=== PATIENT | female | born 1960 | race Caucasian/White ===

== ENCOUNTER 2023-09-18 07:50 | Observation (INO) | payer MEDICARE, OTHER, SELFPAY ==
[2023-09-18] VITALS (12 sets, daily range): BP systolic 93–161; BP diastolic 76–103; PULSE 62–78; RESP 15–22; TEMP 36.2–36.6; O2SAT 96–100
--- NOTE | ~2023-09-18 | CT_ITS ---
EXAMINATION: CTA BRAIN/CAROTID DATE: 09/18/2023 10:35 INDICATION: Transient right hemiplegia TECHNIQUE: Computed tomographic angiography (CTA) of the head and neck was performed with 100 mL Omni paque-350 intravenous contrast. Multiplanar reconstructions and maximum intensity projection 3D-recon structions of the carotid arteries and of the intracranial arteries were created by the technologist on a separate workstation. Automated exposure control and iterative reconstruction technique were emp loyed. The dose-length product was 1138.83 mGy-cm. COMPARISON: Head CT dated 09/18/2023 FINDINGS: Carotid arteries: Aortic arch is normal in caliber with no atherosclerotic plaque, aneurysm or dissection. There is sma ll amount of atherosclerotic plaque with 0% stenosis of the right carotid bulb relative to normal dis dexter artery lumen diameter (NASCET criteria). There is no evident atherosclerotic plaque with 0% steno sis of the left carotid bulb relative to normal distal artery lumen diameter. Cervical soft tissues a re unremarkable. Visualized portions of the upper lungs are clear. Mild cervical spondylosis. Intracranial arteries Small amount of nonhemodynamically significant atherosclerotic plaque at the bilateral carotid siphon s. There is no hemodynamically significant stenosis in the vertebral, basilar and internal carotid ar teries. Vertebral arteries are codominant. There are no aneurysms identified. Both A1 and P1 segment s are patent. The right P1 segment is significantly smaller than the left with additional clot or marcela w supplied right posterior cerebral artery via a patent right posterior communicating artery. There i s also a patent anterior to indicating artery. Cerebral arterial arborization appears symmetric. IMPRESSION: 1. 0% stenosis of the right and left carotid bulbs relative to normal distal artery lumen diameter (N ASCET criteria). 2. Small amount of nonhemodynamically significant atherosclerotic plaque at the bilateral carotid sip hons. Otherwise unremarkable cerebral cerebral CT angiogram with no hemodynamically significant steno sis, thrombosis or aneurysm. Reviewed, dictated and finalized at location B. IMPRESSION: 1. 0% stenosis of the right and left carotid bulbs relative to normal distal ar dl lumen diameter (NASCET criteria). 2. Small amount of nonhemodynamically significant atherosclerotic plaque at the bilateral carotid siphons. Otherwise unremarkable cerebral cerebral CT angiogr am with no hemodynamically significant stenosis, thrombosis or aneurysm.
--- NOTE | ~2023-09-18 | CT_ITS ---
EXAMINATION: CT brain wo con DATE: 09/18/2023 08:16 INDICATION: Right-sided hemiplegia TECHNIQUE: Computed tomography (CT) of the head was performed without intravenous contrast. Sagittal and coronal reconstructions were performed. The mA was adjusted according to patient size. Iterative reconstruction technique was employed. The dose-length product was 681.00 mGy-cm. COMPARISON: head CT dated 04/11/2008 and brain MR dated 07/08/2008 FINDINGS: No acute intracranial hemorrhage, acute infarction or abnormal extra axial fluid collection. There is mild scattered white matter hypoattenuation consistent with chronic small vessel ischemic disease. R elative symmetric dystrophic calcification is at the bilateral basal ganglia. Ventricles are normal a nd symmetric. No mass/mass effect. Intracranial calcified cerebral atherosclerosis is noted. Changes of bilateral intraocular lens replacement. The orbits, paranasal sinuses and mastoid air cells are no rmal. IMPRESSION: 1. Mild scattered white matter hypoattenuation consistent with chronic small vessel ischemic disease. No acute intracranial process. Reviewed, dictated and finalized at location B. IMPRESSION: 1. Mild scattered white matter hypoattenuation consistent with chronic small ve ssel ischemic disease. No acute intracranial process.
--- NOTE | 2023-09-18 08:01 | ECG_ITS ---
Test Date: 2023-09-18 08:24:46 Measurements Intervals [place] Rate: 61 P: 0 PA: 0 QRS: -30 QRSD: 113 T: -17 QT: 379 QTc: 383 Interpretive Statements SINUS RHYTHM INTRAVENTRICULAR CONDUCTION DELAY BORDERLINE R WAVE PROGRESSION, ANTERIOR LEADS PROBABLE LATERAL MYOCARDIAL INFARCTION , PROBABLY OLD BORDERLINE T WAVE ABNORMALITY- INF/LAT LEADS ABNORMAL ECG No previous ECG available for comparison Electronically Signed On 09-18-2023 10:50:08 CDT by Rajat Elena D.O.
[2023-09-18 08:02] LABS: Glucose Point of Care 145 mg/dl (65-105)
--- NOTE | 2023-09-18 08:08 | ED.AMS ---
HPI - Altered Mental Status General Chief Complaint: Altered Mental Status Stated Complaint: low blood sugar; weakness Time Seen by Provider: 09/18/23 07:59 Source: patient and EMS Mode of arrival: EMS History of Present Illness HPI narrative: 63-year-old female with a history of history arthritis status post bilateral TKA, lumbar spondylosis, status post right shoulder surgery, dyslipidemia, diabetes mellitus, CVA TIA, Atrial fibrillation was brought in by EMS for -- patient was unable to move when she got up this morning, right-sided weakness and slurred speech . Called EMS who noted a blood sugar to be 36. Patient is on the Dapagliflozin, glimepiride, Levemir 100 units and semaglutide. -- headache last night which resolved spontaneously -- EMS noted her to have right-sided weakness. Last known well was last night. -- after patient received dextrose IV her symptoms resolved. Her right-sided weakness resolved. patient has had a history of syncopal spells for the last 20 years. She has episodes where she would pass out. The patient has been worked up with an MRI and EEG which has been inconclusive. The patient has never had focal deficits during her previous syncopal spells. On presentation to the ER the patient is alert and oriented. She has an NIHSS of 0 MD complaint: altered mental status Onset (ago): hour(s) ( 1 hour ago) Timing confirmed by: family member Context: diabetes and other ( TIA) Associated symptoms: denies other symptoms Treatments prior to arrival: glucose Related Data Home Medications Medication Instructions Recorded Confirmed dapagliflozin propanediol 5 mg 5 mg PO DAILY 09/05/23 09/18/23 tablet escitalopram oxalate 10 mg tablet 10 mg PO DAILY 09/05/23 09/18/23 glimepiride 2 mg tablet 2 mg PO QAM 09/05/23 09/18/23 hydrochlorothiazide 25 mg tablet 25 mg PO DAILY 09/05/23 09/18/23 hydrocodone 10 mg-acetaminophen 1 tablet PO Q6H PRN Pain 09/05/23 09/18/23 325 mg tablet insulin detemir U-100 100 unit/mL 100 unit subcut DAILY 09/05/23 09/18/23 subcutaneous solution (Levemir U-100 Insulin) losartan 100 mg tablet 100 mg PO DAILY 09/05/23 09/18/23 mirabegron 50 mg tablet,extended 50 mg PO DAILY 09/05/23 09/18/23 release 24 hr omeprazole 20 mg capsule,delayed 20 mg PO DAILY 09/05/23 09/18/23 release semaglutide 0.25 mg or 0.5 mg (2 0.25 mg subcut WEEKLY 09/05/23 09/18/23 mg/1.5 mL) subcutaneous pen injector simvastatin 20 mg tablet 20 mg PO DAILY 09/05/23 09/18/23 zolpidem 10 mg tablet 10 mg PO QHS 09/05/23 09/18/23 Allergies Allergy/AdvReac Type Severity Reaction Status Date / Time codeine Allergy Unknown pass out Verified 09/18/23 07:59 Cedeno Pepper AdvReac Unknown GI UPSET Uncoded 09/18/23 07:59 FENTANYL PATCH AdvReac Unknown HIVES AND Uncoded 09/18/23 07:59 ITCHING Review of Systems Review of Systems: All systems reviewed & are unremarkable except as noted in HPI and below Constitutional: Constitutional: Reports as per HPI and Reports no additional constitutional complaints Eyes: Eyes: Reports as per HPI and Reports no additional eye complaints ENT: Reports system reviewed and no additional complaints, except as documented and Reports as per HPI Cardiovascular: Cardiovascular: Reports as per HPI and Reports no additional cardiovascular complaints Respiratory: Respiratory: Reports as per HPI and Reports no additional respiratory complaints Gastrointestinal: Gastrointestinal: Reports as per HPI and Reports no additional gastrointestinal complaints Genitourinary: Genitourinary: Reports no additional female genitourinary complaints and Reports as per HPI Musculoskeletal: Musculoskeletal: Reports no additional musculoskeletal complaints and Reports as per HPI Integumentary/Breasts: Skin/Breast: Reports system reviewed and no additional complaints, except as docu and Reports as per HPI Neurologic: Reports system reviewed and no additional complaints, except as documented
[2023-09-18] MEDS: DEXTROSE 10% 250 ML 50 ML IV CONT (08:25)
--- NOTE | 2023-09-18 08:27 | PC.NURSE ---
pt has returned from ct, is sitting up talking with family without distress, laughing and alert. vss per monitor. nad noted. pt has iv medication infusing as ordered without difficulty. will continue to monitor.
[2023-09-18 08:37] LABS: Basophils Absolute Auto 0.02 K/mm3 (0.00-0.10); Basophils Percent Auto 0.4 % (0.0-1.0); Eosinophils Absolute Auto 0.02 K/mm3 (0.02-0.50); Eosinophils Percent Auto 0.4 % (1.0-6.0); Hematocrit 43.6 % (35.0-49.0); Hemoglobin 14.4 g/dL (12.0-15.0); Immature Granulocyte Absolute 0.01 K/mm3 (0.00-0.00); Immature Granulocyte Percent A 0.2 % (0.0-0.0); Immature Platelet Fraction Pct 2.1 % (1.0-7.0); Lymphocytes Absolute Auto 0.62 K/mm3 (1.10-4.50); Lymphocytes Percent Auto 13.5 % (18.0-42.0); Mean Corpuscular Hemoglobin 30.8 pg (27.0-31.0); Mean Corpuscular Volume 93.4 fL (78.0-102.0); Mean Platelet Volume 10.5 fl (9.2-11.8); Monocytes Absolute Auto 0.31 K/mm3 (0.10-0.90); Monocytes Percent Auto 6.8 % (2.0-11.0); Neutrophils Absolute Auto 3.61 K/mm3 (1.70-7.20); Neutrophils Percent Auto 78.7 % (50.0-70.0); Platelet Count Result 57 K/mm3 (150-420); Red Blood Count 4.67 M/mm3 (4.20-5.40); Red Cell Distribution Width 14.4 % (11.6-14.4); White Blood Count 4.6 K/mm3 (4.8-10.8)
--- NOTE | 2023-09-18 08:37 | PC.NURSE ---
breakfast tray ordered
[2023-09-18 08:52] LABS: Prothrombin Time 11.4 Seconds (9.64-11.0)
[2023-09-18 08:54] LABS: Alanine Aminotransferase 37 U/L (14-59); Albumin Level 3.2 g/dL (3.4-5.0); Alkaline Phosphatase 81 U/L (46-116); Anion Gap 8 mmol/L (4-12); Aspartate Amino Transferase 41 U/L (15-37); Bilirubin,Total 1.7 mg/dL (0.00-1.00); Blood Urea Nitrogen 14 mg/dL (7-18); Calcium 9.1 mg/dL (8.5-10.1); Carbon Dioxide 27 mmol/L (21-32); Chloride 107 mmol/L (98-108); Estimated CRCL calculation 60 ml/min; Estimated Glomerular Filt Rate 46; Glucose 121 mg/dL (70-99); Lipase 76 U/L (16-77); Osmolality Calculated 295 mOsm/kg (285-295); Sodium 142 mmol/L (136-145); Total Protein 6.6 g/dL (6.4-8.2); Troponin I 15.7 ng/L (0.00-60.4)
[2023-09-18 08:59] LABS: Lactic Acid Reflex 1.8 mmol/L (0.4-2.0)
--- NOTE | 2023-09-18 09:09 | PC.NURSE ---
pillow provided for pt's knees as requested. family remains at bedside. fsbs 124 at this time. iv medication infusing as ordered without difficulty. will continue to monitor.
[2023-09-18 09:10] LABS: Glucose Point of Care 124 mg/dl (65-105)
[2023-09-18 09:31] LABS: Appearance Urine Clear (Clear); Bilirubin Urine Negative (Negative); Blood Urine Negative (Negative); Color Urine Light Yellow (Yellow); Glucose Urine UA 3+ (Negative); Ketones Urine Negative (Negative); Leukocyte Esterase Ur Trace LEU/UL (Negative); Nitrate Urine Negative (Negative); Protein Urine Negative (Negative); Specific Grav Ur <= 1.005 (1.010-1.020); Urobilinogen Urine 0.2 mg/dL (0.2-1.0)
[2023-09-18 09:39] LABS: Add Urine Microscopic? YES; Bacteria Urine 1+ /hpf; RBC Urine None seen /hpf (0-2); Squamous Epithelial Cell Urine Few /hpf (Few)
[2023-09-18 10:02] LABS: Glucose Point of Care 172 mg/dl (65-105)
[2023-09-18 10:03] LABS: Cholesterol 91 mg/dL (0-200); HDL Direct 55 mg/dL (40-60); LDL Cholesterol Calculated 26 mg/dL (<130); Triglycerides 49 mg/dL (0-150)
[2023-09-18 10:07] LABS: Hemoglobin A1C 5.5 % (<5.7)
--- NOTE | 2023-09-18 10:15 | PC.NURSE ---
pt is in ct at this time. pt is to await results prior to admission. pt and family are aware of plan of care. nad noted. pt has been to rr without difficulty per tech and wc. pt has steady gait noted. will continue to monitor.
[2023-09-18] MEDS: ASPIRIN 81 MG CHEWABLE TABLET 324 MG PO (10:31)
[2023-09-18] MEDS: CLOPIDOGREL BISULFATE 75 MG TABLET PO (10:31)
--- NOTE | 2023-09-18 10:54 | PC.NURSE ---
pt is to be admitted to room 204. family has left for the day. pt is to at this time. will continue to monitor.
[2023-09-18 11:03] LABS: Glucose Point of Care 181 mg/dl (65-105)
--- NOTE | 2023-09-18 11:20 | ADMGEN ---
This patient, Reena Cardoso, was admitted to 2nd Floor Room 204-2. Patient/family oriented to hospital policies and general routines including ID bracelet, bed and alarms, visiting hours, pain management, procedures, bathroom and other care routines, personal items, smoking policy, room service/diet, and visiting hours. Information on how to activate the Rapid Response Team has been discussed. Patient/Family are encouraged to report perceived risks to care and to ask questions if they do not understand what they are told or what they should do.
[2023-09-18] MEDS: ONDANSETRON INJ 4 MG/2 ML VIAL IV PUSH (12:05)
[2023-09-18 12:10] LABS: Glucose Point of Care 186 mg/dl (65-105)
[2023-09-18 14:23] LABS: Glucose Point of Care 188 mg/dl (65-105)
--- NOTE | 2023-09-18 14:55 | ECHO_ITS ---
Patient Info Name: Reena Cardoso Age: 63 years : 1960 Gender: Female Ht: 68 in Wt: 280 lbs BSA: 2.53 m2 HR: 76 bpm BP: 150 / 78 mmHg Technical Quality: Good Exam Date: 09/18/2023 2:12 PM Exam Location: Echo Lab Patient Status: Inpatient Admit Date: 09/18/2023 Staff Ordering Physician: Ni Ashraf NP Entry Specialists: Ishaan Reinoso RDCS Attending Provider: Richard Teran MD Referring Physician: Andriy ZHANG; Exam Type: CA echo limited w bubble study Study Info Indications - stroke like symptoms Limited two-dimensional transthoracic echocardiogram is performed with agitated saline. Contrast/Agitated Saline Contrast/Ag. Saline: Agitated Saline Amount: 8.00 ml Existing IV Access: Yes Summary 1. Left ventricular chamber dimension is normal. 2. Left ventricular systolic function is normal, estimated at 60-65%. 3. There is mild concentric increased left ventricular wall thickness. 4. The left ventricular diastolic function is indeterminate as it was not assessed. 5. Left atrial chamber dimension is mildly enlarged. 6. There is mild aortic valve sclerosis. 7. No pulmonary hypertension, estimated pulmonary arterial systolic pressure is 25 mmHg. Left Ventricle The left ventricular diastolic function is indeterminate as it was not assessed. Tissue doppler was not performed. Left ventricular chamber dimension is normal. Left ventricular systolic function is normal, estimated at 60-65%. There is mild concentric increased left ventricular wall thickness. Right Ventricle Right ventricular chamber dimension is normal. Right ventricular systolic function is normal. Left Atria Left atrial chamber dimension is mildly enlarged. Right Atria Right atrial chamber dimension is normal. Atrial Septum Agitated saline injection with valsalva maneuver opacified right side cardiac chambers without shunt to left side cardiac chambers. Intact interatrial septum visualized by 2D and agitated saline imaging. Aortic Valve The aortic valve is trileaflet. There is mild aortic valve sclerosis. There is no aortic valve stenosis. There is no aortic valve regurgitation. Pulmonic Valve There is no pulmonic regurgitation. Mitral Valve There is no mitral valve stenosis. There is no mitral valve regurgitation. Tricuspid Valve There is no tricuspid valve regurgitation. No pulmonary hypertension, estimated pulmonary arterial systolic pressure is 25 mmHg. Pericardium/Pleural There is no pericardial effusion. Inferior Vena Cava Normal inferior vena cava with >50% collapse upon inspiration consistent with normal right atrial pressure, 5 mmHg. Aorta The aortic root size at the sinus of Valsalva is normal. Left Ventricular Outflow Tract Name Value Normal LVOT 2D LVOT Diameter 2.0 cm Tricuspid Valve Name Value Normal TV Regurgitation Doppler TR Peak Velocity 226 cm/s TR Peak Gradient 20 mmHg Estimated PAP/RSVP
[2023-09-18 16:49] LABS: Glucose Point of Care 156 mg/dl (65-105)
[2023-09-18 20:54] LABS: Glucose Point of Care 176 mg/dl (65-105)
[2023-09-18] MEDS: ZOLPIDEM TARTRATE (*CRX) 5 MG TABLET 10 MG PO (21:02)
[2023-09-19] VITALS: BP 180/76; PULSE 65; RESP 16; TEMP 36.8; O2SAT 98
[2023-09-19 08:00] VITALS: BP 166/85; PULSE 64; RESP 17; TEMP 36.4; O2SAT 98
[2023-09-19 08:09] LABS: Glucose Point of Care 176 mg/dl (65-105)
--- NOTE | 2023-09-19 09:06 | PM.SD2 ---
Same Day Admit/Disch: HPI History of Present Illness Chief complaint: HYPERGLYCEMIA TIA Narrative: Reena Cardoso is a 63 year old female 63-year-old female with a history of history arthritis status post bilateral TKA, lumbar spondylosis, status post right shoulder surgery, dyslipidemia, diabetes mellitus, CVA TIA, Atrial fibrillation was brought in by EMS for -- patient was unable to move when she got up this morning, right-sided weakness and slurred speech . Called EMS who noted a blood sugar to be 36. Patient is on the Dapagliflozin, glimepiride, Levemir 100 units and semaglutide. -- headache last night which resolved spontaneously -- EMS noted her to have right-sided weakness. Last known well was last night. -- after patient received dextrose IV her symptoms resolved. Her right-sided weakness resolved. patient has had a history of syncopal spells for the last 20 years. She has episodes where she would pass out. The patient has been worked up with an MRI and EEG which has been inconclusive. The patient has never had focal deficits during her previous syncopal spells. On presentation to the ER the patient is alert and oriented. She has an NIHSS of 0 PMFSH Past Medical History Medical History Anemia Diabetes High cholesterol Hypertension SINGLETON (nonalcoholic steatohepatitis) Recurrent syncope TIA (transient ischemic attack) Surgical History Surgical History History of carpal tunnel release of both wrists History of knee replacement bilateral History of lumbosacral spine surgery Family History Family History Sibling Family history of malignant neoplasm of uterus Other Cerebrovascular accident Diabetes mellitus Family history of arthritis Family history of atrial fibrillation Family history of blood dyscrasia Family history of hearing loss Family history of lung disease Family history of mental disorder Hypertension Social History Social History Smoking status: Never smoker Alcohol intake: never Substance use: never Substance use type: does not use Do You Feel Safe in your Home?: Yes Lack of Transportation: No Lack of Food: Never True Current Housing: I Have Housing Concerned About Future Housing: No Difficulty Paying Gas/Electric Bills: No Difficulty Paying for Meds: YES Currently Unemployed: No Education: Bachelor's Degree Difficulty w/ Childcare or Family Care: No Living arrangements: with family Occupation/Education: retired Additional occupation/education comments: disabled Gender identity (if verbalized by the patient): Female Spiritual care concerns: No Same Day Admit/Disch: Med Pre-admit Medications Home Medications Medication Instructions Recorded Confirmed Type dapagliflozin propanediol 5 mg 5 mg PO DAILY 09/05/23 09/18/23 History tablet escitalopram oxalate 10 mg tablet 10 mg PO DAILY 09/05/23 09/18/23 History glimepiride 2 mg tablet 2 mg PO QAM 09/05/23 09/18/23 History hydrochlorothiazide 25 mg tablet 25 mg PO DAILY 09/05/23 09/18/23 History hydrocodone 10 mg-acetaminophen 1 tablet PO Q6H PRN Pain 09/05/23 09/18/23 History 325 mg tablet insulin detemir U-100 100 unit/mL 100 unit subcut DAILY 09/05/23 09/18/23 History subcutaneous solution (Levemir U-100 Insulin) losartan 100 mg tablet 100 mg PO DAILY 09/05/23 09/18/23 History mirabegron 50 mg tablet,extended 50 mg PO DAILY 09/05/23 09/18/23 History release 24 hr omeprazole 20 mg capsule,delayed 20 mg PO DAILY 09/05/23 09/18/23 History release prednisone 10 mg tablet 10 mg PO BID #20 tabs 09/05/23 09/18/23 Rx semaglutide 0.25 mg or 0.5 mg (2 0.25 mg subcut WEEKLY 09/05/23 09/18/23 History mg/1.5 mL) subcutaneous pen injector simv
[2023-09-19 09:34] LABS: Hematocrit 43.6 % (35.0-49.0); Hemoglobin 14.2 g/dL (12.0-15.0); Immature Platelet Fraction Pct 2.6 % (1.0-7.0); Mean Corpuscular HGB Conc 32.6 g/dL (32-36); Mean Corpuscular Hemoglobin 30.9 pg (27.0-31.0); Mean Platelet Volume 10.4 fl (9.2-11.8); Platelet Count Result 48 K/mm3 (150-420); Red Blood Count 4.59 M/mm3 (4.20-5.40); Red Cell Distribution Width 13.9 % (11.6-14.4); White Blood Count 2.6 K/mm3 (4.8-10.8)
[2023-09-19] MEDS: LOSARTAN POTASSIUM 50 MG TABLET 100 MG PO (09:44)
[2023-09-19] MEDS: SIMVASTATIN 10 MG TABLET 20 MG PO (09:44)
[2023-09-19 09:48] LABS: Blood Urea Nitrogen 14 mg/dL (7-18); Calcium 9.5 mg/dL (8.5-10.1); Chloride 105 mmol/L (98-108); Estimated CRCL calculation 55 ml/min; Estimated Glomerular Filt Rate 41; Glucose 245 mg/dL (70-99); Osmolality Calculated 302 mOsm/kg (285-295); Potassium 4.1 mmol/L (3.5-5.1); Sodium 142 mmol/L (136-145)
[2023-09-19 09:53] LABS: Carbon Dioxide 28 mmol/L (21-32)
[2023-09-19 10:08] LABS: Anion Gap 8 mmol/L (4-12)
--- NOTE | 2023-09-19 11:20 | PC.NURSE ---
Discharge instructions reviewed with patient. All questions answered. Pt escorted via wheelchair and assisted into private vehicle.
--- NOTE | 2023-09-20 13:43 | PC.NURSE ---
Discharge call back attempted, no answer
--- NOTE | 2023-09-23 09:39 | PC.NURSE ---
discharge call back attempted, no answer
== END 2023-09-19 11:20 | disposition home or self-care (01) ==
LOC: CHSED 09:40 → CHS2ND 11:00
PROVIDERS: Nurse Practitioner Family; Admitting Provider Internal Medicine; Emergency Provider Internal Medicine Critical Care Medicine; PCP Internal Medicine Endocrinology, Diabetes & Metabolism; Visit Provider Internal Medicine
DX: G45.9 Transient cerebral ischemic attack, unspecified (principal); N28.9 Disorder of kidney and ureter, unspecified; E11.649 Type 2 diabetes mellitus with hypoglycemia without coma; M47.816 Spondylosis without myelopathy or radiculopathy, lumbar region; D64.9 Anemia, unspecified; R55 Syncope and collapse; E78.00 Pure hypercholesterolemia, unspecified; K75.81 Nonalcoholic steatohepatitis (NASH); Z86.73 Personal history of transient ischemic attack (TIA), and cerebral infarction without residual deficits; Z96.653 Presence of artificial knee joint, bilateral; Z79.84 Long term (current) use of oral hypoglycemic drugs; Z79.4 Long term (current) use of insulin; Z79.85 Long-term (current) use of injectable non-insulin antidiabetic drugs; Z79.891 Long term (current) use of opiate analgesic
CPT/HCPCS: 36415; 70450; 70496; 70498; 80048; 80053; 80061; 81001; 82948; 83036; 83605; 83690; 83735; 84484; 85025; 85027; 85055; 85610; 93005; 93308; 96365; 96366; 96375; 97161; 99285; A9270; G0378; J0696; J2405; Q9967

== ENCOUNTER 2024-05-19 15:49 | Outpatient (RCR) | payer MEDICARE, OTHER, SELFPAY ==
--- NOTE | 2024-05-19 15:56 | OPREHPOC ---
Outpatient Therapy Plan of Care This is a Multidisciplinary Plan of Care that may contain components documented by all disciplines (PT, OT, and ST.) PT Problem 1 PT Problem #1 Knowledge Deficit PT Goal 1 Goal / Goal Update 1. independent and compliant with HEP Target Visit 6 PT Problem 2 PT Problem #2 Impaired Strength PT Goal 1 Goal / Goal Update 1. improve bilateral hip strength to 4/5 or better in sitting 2. improve bilateral knee strength to 4+/5 or better in sitting 3. improve bilateral ankle strength to 4+/5 or better Target Visit 12 PT Problem 3 PT Problem #3 Impaired Balance PT Goal 1 Goal / Goal Update 1. tinetti to display moderate fall risk or less 2. 5x sit to stand to be completed in 30 seconds or less 3. TUG to be completed in 12 seconds or less safely Target Visit 12 PT Problem 4 PT Problem #4 Impaired Functional Mobility PT Goal 1 Goal / Goal Update 1. patient to report no falls while a patient in PT. 2. patient to ambulate 700ft in 6 minutes without rest Target Visit 12
--- NOTE | 2024-05-19 15:57 | PTOPEVAL1 ---
Assessment and note entered by JT File, PT Evaluation Information Assessment Status Evaluation ICD-10 Condition Codes (PT) Repeated falls R29.6 Onset 05/11/24 Subjective Information patient reports she has a lot going on. she reports she was diagnosed with neuropathy back in 2004. she reports she now has poor circulation in her feet (L worse than R). she reports these circulation and neuropathy issues are beginning to gravitate up her legs. she reports she does have history of several falls. she reports she has spinal fractures from some of her older falls. she reports more recently, she has been having frequent falls due to not knowing where her feet are due to neuropathy and poor circulation. she is complicated by several surgeries on the knees (47 total between the 2). she reports she struggles to move the R knee in flexion, but is better with the L knee. Reported Pain Level Pain Score 8: Self Report Assessment PT Clinical Summary mrs. montez is a 63 yo woman who presents to skilled PT services for evaluation and treatment of frequent falls. she displays poor sensation of the bilateral LE's, high fall risk, and LE weakness/decreased mobility. she would benefit from continued skilled PT to improve her balance, proprioception, righting reactions, and strength to improve her safety and functional activity performance. Plan of Care Interventions Gait Training,Neuro Re-education,Patient/Caregiver Education,Therapeutic Activities,Therapeutic Exercise PT Services Indicated Yes Treatment Frequency and 3x weekly for 12 visits Duration These treatments will address the objective and functional deficits as defined above. The patient will be advanced safely and appropriately in order for the patient to progress towards his/her prior level of function. Additional exercises will be introduced and as well as a comprehensive home exercise program upon discharge, if needed, to ensure carryover of functional gains achieved in the clinic. This treatment plan has been reviewed and agreement upon by the patient.
--- NOTE | 2024-05-28 14:04 | PCPTNOTE ---
Cancelled session. Reports she is not going to make it today.
== END 2024-05-21 20:00 | disposition home or self-care (01) ==
LOC: CHSPT 15:49
PROVIDERS: Visit Provider Family Medicine
DX: R29.6 Repeated falls (principal)
CPT/HCPCS: 97110; 97150; 97161; 97530

== ENCOUNTER 2024-12-07 15:08 | Outpatient (CLI) | payer MEDICARE, OTHER, SELFPAY ==
--- OUTSIDE RECORDS SUMMARY | 2016-01-13 08:00 | XMS_ITS | Continuity of Care Document ---
Author Organization [facility] Address [address] [place] [address] Phone Care Team Providers Care Harness Worker Name Role Phone Andrés Chavez MD Unavailable Unavailable Advance Directives Directive Yes / No Effective Date File Name No Information Encounters Encounter Description Practice Location Reason(s) For Visit Diagnoses Date Provider Providers Copied on Encounter [facility], [address], [place], [place], [id number], [place] tel:[phone] [facility] No Information Scott Bowen. [address] , [place], [place], [address], [place]. tel:[phone] Referring Provider: Manny Deleon, [address], [place], [address]. tel:[phone] Family History Family Member Type Diagnosis Age At Onset No Information Payers Payer name Insurance type Covered republican ID Authoriza tion(s) MEDICARE MB [id number] [facility] [id number] Social History Type Description Quantity Date Captured Comments Sex Female Smoking Status No Information Chief Complaint And Reason For Visit No Information Reason For Referral Reason For Referral No Information History Of Present Illness Encounter Date Complaint History Of Prese nt Illness No Information Functional Status Date Functional Assessmen t No Information Instructions Date Instruction Additional Infor mation No Information Assessments Type Assessment Date No Information Patient Care Teams Name Effective Dates (start - stop) Status Members No Information
--- OUTSIDE RECORDS SUMMARY | 2016-02-08 09:45 | XMS_ITS | Continuity of Care Document ---
Author Organization [facility] Address [address] [facility] [address] [address] Phone Care Team Providers Care Cuffing Machine Operator Name Role Phone Enoc Hurtado MD Unavailable Unavailable Allergies, Adverse Reactions, Alerts Substance Reaction Status Criticality fentanyl Active No Information Medications Medication Instructions Dosage Effective Dates (start - stop) Status Comments diclofenac 0.1 % eye drops Instill 1 drop in the operated eye TID x 4 weeks - Active prednisolone acetate 1 % eye drops,suspension instill 1 drop in the operated eye QID x 1 week, TID x 1 week, BID x 1 week then Qday x 1 week then stop - Active Vigamox 0.5 % eye drops Instill 1 drop in the operated eye QID x 1 week, and then TID until bottle runs out - Active Please substitute generic Polytrim with the same instructions if the Vigamox is too expensive. LEVEMIR (unknown strength) Not Available - Active OMEPRAZOLE (unknown strength) Not Available - Active Zoloft 100 mg tablet take 1 tablet by oral route every 2 days 100 MG - Active metformin 500 mg tablet - Active Ambien 10 mg tablet take 1 tablet by oral route every day at bedtime 10 MG - Active clonazepam 1 mg tablet take 1 tablet by oral route 3 times every day 1 MG - Active lisinopril 10 mg tablet take 1 tablet by oral route every day 10 MG - Active Accu-Chek Carri Plus test strips - Active ProAir RespiClick 90 mcg/actuation breath activated inhale 2 puff by inhalation route every 4 - 6 hours as needed 180 MCG - Active clonazepam 1 mg tablet take 1 tablet by oral route 3 times every day 1 MG - Active cyclobenzaprine 10 mg tablet take 1 tablet by oral route 2 times every day 10 MG - Active Levemir 100 unit/mL subcutaneous solution inject by subcutaneous route per prescriber's instructions. Insulin dosing requires individualizatio n. - Active lisinopril 10 mg tablet take 1 tablet by oral route every day 10 MG - Active loratadine 10 mg tablet take 1 tablet by oral route every day 10 MG - Active omeprazole 20 mg capsule,delayed release take 1 capsule by oral route every day before a meal 20 MG - Active oxycodone-acetaminop hen 10 mg-325 mg tablet take 1 tablet by oral route every 6 hours as needed 1.00 tablet - Active sertraline 100 mg tablet take 1 tablet by oral route every day 100 MG - Active Lancets, Super Thin - Active trazodone 100 mg tablet take 1 tablet by oral route 2 times every day after meals 100 MG - Active Procedures Procedure Date No Charge Refraction Post-op Follow-up Visit No Charge Optomap Fundus Photos Oct- 016 No Charge GDX Retina Post-op Follow-up Visit Remove Cataract, Insert Lens Remove Cataract, Insert Lens,Comanaged O IOLMaster-Professional No Charge Refraction IOLMaster-Technical Office/outpatient Visit, Est No Charge Refraction SCODI, Retina Eye Exam, New Patient Advance Directives Directive Yes / No Effective Date File Name No Information Encounters Encounter Description Practice Location Reason(s) For Visit Diagnoses Date Provider Providers Copied on Encounter [facility], [address], [place], [place], [id number], [place] tel:[phone] SEC Anthony PURCELL Professional Post-Op (chief complaint) Encounter for examination following surgery 3-201 6 Bryant Stubbs. [address] [facility], [address], [place], [place], [id number], [place]. tel:[phone] Referring Provider: Michelle Kc MD, [address] [facility] [address], [place], [address]. tel:[phone] [facility], [address], [place], [place], [address], [place] tel:[phone] SEC Anthony PURCELL Professional flashes and half schultz in vision OD (chief complaint) Surgery follow-up examination Oct-1 4-201 6 Bryant Stubbs. [address] [facility], [address], [place], [place], [address], [place]. tel:[phone] Referring Provider: Michelle Kc MD, [address] [facility] [address], [place], [address]. tel:[phone] [facility], [address], [place], [place], [id number], [place] tel:[phone] SEC Anthony PURCELL Professional Post-Op (chief complaint) Surgery follow-up examination Oct-1 2-201 6 Bryant Stubbs. [address], [address], [place], [place], [address], [place]. tel:[phone] Referring Provider: Michelle Kc MD, [address] [facility] [address], [place], [address]. tel:[phone] [facility], [address], [place], [place], [address], [place] tel:[phone] [facility] [place] [place] No Information Oct- 1- 6 Bryant Stubbs. [address], [address], [place], [place], [address], [place]. tel:[phone] Referring Provider: Michelle Kc MD, [address] [facility] [address], [place], [address]. tel:[phone] [facility], [address], [place], [place], [address], [place] tel:[phone] SEC Miguel N Delfino No Information Oct-1 0- 6 Bryant Stubbs. [address] [facility], [address], [place], [place], [address], [place]. tel:[phone] [facility], [address], [place], [place], [address], [place] tel:[phone] SEC Miguel N Lindberg No Information Oct-1 0-201 6 Bryant Enriquezson. [address] [facility], [address] [place], [address], [place]. tel:[phone] Referring Provider: Michelle Kc MD, [address] [facility] [address], [place], [address]. tel:[phone] Office/outpa tient Visit, [facility], [address] [facility] [address], [place], [place], [address], [place] [phone] SEC Anthony PURCELL Professional Cataract evaluation (chief complaint) Mild nonproliferat rachel diabetic retinopathy without macular edema associated with type 2 diabetes mellitusCombi johny forms of age-related cataract of right eyeNuclear sclerosis of left eyeDry eye syndrome, bilateral Oct-3 0-201 6 Bryant Stubbs. [address] [facility], [address] [place], [address], [place]. tel:[phone] Referring Provider: Michelle Kc MD, [address] [facility] [address], [place], [address]. tel:[phone] [facility], [address] [facility] [address], [place], [place], [address], [place] [phone] SEC Anthony PURCELL Professional diabetic evaluation (chief complaint) No Information Oct-0 5-201 6 Bryant Stubbs. [address] [facility], [address] [place], [address], [place]. tel:[phone] Referring Provider: Michelle Kc MD, [address] [facility] [address], [place], [address]. tel:[phone] [facility], [address], [place], [place], [address], [place] tel:[phone] SEC Anthony [place] Professional No Information 6 Bryant Stubbs. [address] [facility], [facility] [place], [address], [place]. tel:[phone] [facility], [address], [place], [place], [address], [place] tel:[phone] SEC [facility] Professional No Information 6 Savi Shepherd. [address] [facility], [facility] [address], [place], [place], [address], [place]. tel:[phone] Family History Family Member Type Diagnosis Age At Onset No Information Payers Payer name Insurance type Covered republican ID Authoriza tion(s) No Information Social History Type Description Quantity Date Captured Comments Alcohol Use Details Unknown Caffeine Use Details Unknown Tobacco Use Status No Information Smoking Status No Information Sex Female Chief Complaint And Reason For Visit From encounter dated '02/08/2016 14:45'. Post-Op (chief complaint). Description: The 55 year old female presents for a 1 month post op CE OD. Patient is finished with drops. Patient states OD is doing good Reason For Referral Reason For Referral No Information History Of Present Illness Encounter Date Complaint History Of Prese nt Illness Post-Op The 55 year old female presents for a 1 month post op CE OD. Patient is finished with drops. Patient states OD is doing good flashes and half schultz in vision OD The 55 year old female presents for flashes and half schultz in vision OD. Patient is 3 days post op PCIOL OD. Patient states that Saturday she noticed flashes OD. Then yesterday afternoon that she noticed a half schultz in her vision temporally. She states that her vision above the line is blurry but bleow the line is black Post-Op The 55 year old female presents for a 1 day post op CE OD. Patient is using Pred, Vigamox and Diclofenac as directed. Patient denies any pain or discomfrt. Patient did not bring drops today. Cataract evaluation The 55 year old female presents for Cataract evaluation. Patient Hx Cataract OU and Type II IDDM. BS was 136 on Saturday. Patient reports she has noticed a decrease in the vision OD>OS at distance and near. Patient no longer drives at night due to poor vision and trouble with glare from oncoming lights. Patient has recently started having difficulty reading fine print even with the OTCR. Patient does not use any eye drops at this time. diabetic evaluation The 55 year old female presents for diabetic evaluation. Pt. states OD is blurry and she cant see hardly anything out of it. OS will occ. go blurry. Pt. states that she has been diabetic for 24 years. Pt. is DIMM II and states that she didn't take her blood sugar this morning. Pt. states that when she last checked it yesterday morning was 136. She states that her last A1C was 8.6 and that was taken last . Pt. has lost 40 pounds recently by trying. Dr. Michelle Kc referred her for diabetic retinopathy. Pt. states that many years ago she was told that she had GEOVANY by [facility]. Pt states that she does feel that her eyes are dry and she normally uses AFT (Visine Dry Eye Tears). Functional Status Date Functional Assessmen t No Information Instructions Date Instruction Additional Infor liz Impression/Plan - 1 month s/p Phaco IOL OD. Patient has healed well. All post operative medications are finished. Vision is good and IOP is stable. Discussed in detail with patient signs and symptoms of retinal detachment. Advised patient to call our office with any new or worsening floaters, flashes of light, or curtain vision loss. AFT use discussed with patient. Recommend using QID OU. CE OS not recommended at this time given excellent best corrected vision OS. Patient will return to clinic in 4 months for Complete IOL check or sooner with problems. Follow up - 4 months for complete IOL check or sooner with problems Impression/Plan - 3 days s/p Phaco IOL OD. Patient states Saturday she started noticing quick flashes of light temporally OD, without change in vision. she noticed her inferior vision OD was black, like a distinctive line across the vision where above it was clear and below the vision is black. Patient has not noticed any floaters in the vision. There is no evidence of retinal hole, tear or detachment upon today's dilated exam OD. OCT imaging shows the macula is attached and no other signs of RD. Due to her classic visual symptoms and being 3 days s/p CE I strongly recommend patient be seen by a retina specialist today for a second opinion. *Patient will be seeing Dr. Fowler ( Pan Cleaner microphone boom operator ) at the [facility] [place] location when she leaves the office. Dr. Fowler and the patient exchanged phone numbers to communicate, as Dr. Fowler will be meeting her there. Patient's left eye was dilated before she left the office today to expedite her exam with Dr. Fowler. Follow up - Emergent Retina Referral for possible RD OD s/p CE OD Impression/Plan - On e Day Post Op s/p Phaco with IOL OD in good position. Patient healing well. Medication instillation, shield use and restrictions reviewed with patient. Return to clinic as scheduled or sooner with problems. Follow up - Return to clinic as scheduled Impression/Plan - Di abetes Type II: Patient shows mild non-proliferative diabetic retinopathy OD upon today's dilated exam. Ocular and systemic benefits of good blood sugar control stressed to patient.Cataract Diagnosis OD>OS discussed in detail with patient. Patient understands OS does not qualify for CE at this time. Discussed all risks, benefits and alternatives pertaining to cataract surgery. The procedure and recovery from cataract extraction were discussed. Recommend phacoemulsification with intraocular lens implant OD. Lifestyle lens options discussed. The possibility that patient may still need to wear glasses to correct astigmatism and/or for reading vision following surgery reviewed and understood by patient. Patient understands that her vision does not meet the legal requirements to drive at night. Patient elects to proceed with CE OD with the standard IOL set for distance.*Possible Shugarcaine; Possible Malyugin ring Follow up - Schedule CE OD with the standard IOL set for distance Follow up - Return i n 2 weeks with Enoc Hurtado M.D. for full cat evaluation with IOL master, Age-related nuclear cataract, bilateral - Educational material given Related to Age-related nuclear cataract, bilateral Impression/Plan - Di abetes type II: baseline exam showing Mild NPDR OU without CME. No treatment necessary at this time. Patient was instructed to monitor vision for sudden changes and to call if visual changes noted. Discussed ocular and systemic benefits of blood sugar control. DM letter sent to Dr Kc. Cataracts OD>OS discussed in detail with patient. OCT MAC OU today wnl. Hx of steroid use. Discussed all risks, benefits and alternatives pertaining to cataract surgery. The procedure and recovery from cataract extraction were discussed. Recommend phacoemulsification with intraocular lens implant. Lifestyle lens options discussed. The possibility that patient may still need to wear glasses to correct astigmatism and/or for reading vision following surgery reviewed and understood by patient. Patient elects to proceed with CE OD only at this time. Cataract OS does not qualify at this time. Return in 2 weeks for full Cataract Evaluation. Will discuss IOL choices at next visit. Assessments Type Assessment Date assessment Encounter for examination follow ing surgery Patient Care Teams Name Effective Dates (start - stop) Status Members No Information
--- OUTSIDE RECORDS SUMMARY | 2023-05-30 08:45 | XMS_ITS | Continuity of Care Document ---
Author Organization [facility] Address [address] [place] [address] Phone Care Team Providers Care Eyeglass Frames Inspector Name Role Phone Luis Carlos Simmons MD Unavailable Unavailable Procedures Procedure Date OFFICE/OUTPATIENT VISIT, [facility] Syst Bp> = 140 Mm Hg6 It Diast Bp 80-89 Mm Hg BODY MASS INDEX DOCD ROUTINE VENIPUNCTURE COMPLETE CBC W AUTO DIFF WBC INITIAL HOSPITAL CARE SUBSEQUENT HOSPITAL CARE HOSPITAL DISCHARGE DAY Advance Directives Directive Yes / No Effective Date File Name No Information Encounters Encounter Description Practice Location Reason(s) For Visit Diagnoses Date Provider Providers Copied on Encounter OFFICE/OUTPAT IENT VISIT, NEW [facility], [address] [place] [address], [id number], [place] tel:[phone] [facility] 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 [address] [place] [address], [id number] , [place]. tel:[phone] Referring Provider: Luis Carlos Simmons, [address] [place] [address], [address] . tel:[phone] [facility], [address] [place], [place], [address], [place] tel:[phone] [facility] Iris Anemia, unspecified type 4 Iris Andrewsmy. [address] [place] [address], [id number] , [place]. tel: [phone] [facility], [address] [place], [place], [id number], [place] tel:[phone] [facility] Anemia, unspecified 4 Iris Luis Carlos. [address] [place] [address], [id number] , [place]. tel: [phone] Referring Provider: Luis Carlos Simmons, [address] [place] [address], [address] . tel:[phone] [facility], [address] [place], [place], [id number], [place] tel:[phone] [facility] No Information [address], [place], [id number] , [place]. tel: [phone] Family History Family Member Type Diagnosis Age At Onset No Information Payers Payer name Insurance type Covered libertarian ID Authoriza tion(s) Medicare Part B [id number] [facility] [id number] Social History Type Description Quantity Date Captured Comments Alcohol Use Details Unknown Caffeine Use Details Unknown Tobacco Use Status No Information Smoking Status No Information Sex Female Vital Signs Date / Time: Height Weight BMI Pulse Rate Blood Pressure Temperature Respiratory Rate Body Surface Area Head Circumference Head Circ. Percentile Wt./Christophe. Percentile BMI percentile Pulse Ox Inhaled Ox 1:16 PM 68.00 in 136.622 kg (301.20 lbs) 45.8 0 kg/m eter (2) 73 /min 159/85 mm[Hg] 97.60 F 16 /min 97 % Chief Complaint And Reason For Visit From encounter dated '05/30/2023 13:45'. 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 patient here with . states has long standing history of wbc and plts - fluctuates but recently worsened. patient with 2 sets of labs dating from 1 month ago confirms findings. patient states she followed with a liver doctor in [place] who explained likely culprit of cbc findings. overall patient is in good state of health. obese. denies bleeding or bruising. no recurrent infections. 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 patient here with . states has long standing history of wbc and plts - fluctuates but recently worsened. patient with 2 sets of labs dating from 1 month ago confirms findings. patient states she followed with a liver doctor in [place] who explained likely culprit of cbc findings. overall patient is in good state of health. obese. denies bleeding or bruising. no recurrent infections. patient moving to [place] in 1 weeks.physical exam;well appearing female [id number]; no pallorneck; no adenopathychest; s1 and s2, rrrlung; clear lung soundsabdomen; distended, diffult to palpable spleen and liver Functional Status Date Functional Assessmen t No Information Instructions Date Instruction Additional Infor mation No Information Assessments Type Assessment Date assessment Thrombocytopenia assessment Leukopenia, unspecified type May assessment Cirrhosis of liver w ithout ascites, unspecified hepatic cirrhosis type impression states chroniclikley 2/2 splenoemgaly with cirrhosislabs from 1 month agono labs prior to confirm stabilitypatient states flucutatesno bleeding or bruisingmoving in 1 weekdiscussed for need for bone marrow biopsy to r/o myelophthiasispatient understand and agree - will seek out boatswains mate in [place] once situatated impression chronicrecommend obs ervation with trends vs bone marrow biopsylikely 2/2 cirrhosis / splenomegaly will need to r/o MDS Patient Care Teams Name Effective Dates (start - stop) Status Members No Information
--- OUTSIDE RECORDS SUMMARY | 2023-10-18 07:15 | XMS_ITS ---
Author Organization [facility] Address [address] [place] [id number] Care Team Providers Care Supply Chain Intern Name Role Phone Radha Galdamez Primary Care Provider Encounters Encounter Location Date Provider Diagnosis [facility] [address] Galdamez [address] [place] [address] 10/18/2023 Radha Galdamez Plan Of Treatment No Information Progress Notes * Reena ANDINODOB:11/1960 (64 yo F)Acc No.[id number]:10/18/2023 Progress Notes Patient: Etta bargerharleystaciReena Wu Provider: Isa Galdamez MD :1960 A ge:63 Y S ex:Female Date:10/18/2023 Phone: Address:[address] [place], [place] [phone] * Electronic signature of James Galdamez MD on 12/07/2024 at 03:19 PM CDT Sign off status: Pending * Provider: Isa Galdamez MD Date: 10/18/2023 Generated for Justini natalya/Faagata/eTransmitting on: 12/07/2024 03:19 PM CDT
--- OUTSIDE RECORDS SUMMARY | 2024-02-01 16:00 | XMS_ITS ---
Author Organization [facility] Address [address] [place] [address] [place] [id number] Care Team Providers Care Work Distributor Name Role Phone Radha Galdamez Primary Care Provider [phone] Migration, Provider Unavailable Unavailable REASON FOR VISIT Multum To Medispan Conversion Encounter Medications Medication SIG (Take, Route, Frequency, Duration) Notes Start Date End Date Status Xanax 1 MG Tablet 1 tab(s) orally alley y; Duration: 90 days 09/24/2023 Unknown Gvoke Kit 1 MG/0.2ML Solution as directed subcutaneously once; Duration: 90 days 09/23/2023 Unknown Ondansetron 4 MG Tablet Disintegrating 1 tab(s) orally 3 times a day; Duration: 30 days 09/23/2023 Unknown ALPRAZolam 1 MG Tablet 1 tab(s) orally o nce daily; Duration: 30 days 09/23/2023 Unknown Encounters Encounter Location Date Provider Diagnosis [address] [place] [id number] 02/01/2024 Provider Migration Plan Of Treatment No Information Progress Notes * Reena CASILLASDOB:11/1960 (64 yo F)Acc No.[id number]:02/01/2024 Patient: Etta Reena Gonzalez Provider: Rox pryor Migration :1960 A ge:63 Y S ex:Female Date:02/01/2024 Phone: Address:[address] [place] [address], [address], [place] [phone] Pcp:Radha Galdamez Subjective: * Chief Complaints: * M ultum To Medispan Conversion Encounter * Medications: U nknownGvoke Kit 1 MG/0.2ML Solution as directed subcutaneously once Ondansetron 4 MG Tablet Disintegrating 1 tab(s) orally 3 times a day ALPRAZolam 1 MG Tablet 1 tab(s) orally once daily Xanax 1 MG Tablet 1 tab(s) orally daily Unknown Gvoke Kit 1 MG/0.2ML Solution as directed subcutaneously once Unknown Ondansetron 4 MG Tablet Disintegrating 1 tab(s) orally 3 times a day Unknown ALPRAZolam 1 MG Tablet 1 tab(s) orally once daily Unknown Xanax 1 MG Tablet 1 tab(s) orally daily * Electronic signature of Prov ider Migration on 12/07/2024 at 03:19 PM CDT Sign off status: Pending * Provider: Rox pryor Migration Date: 04/02/2023 Generated for Erwin hoang/Chandler/Ann on: 0 12/07/2024 03:19 PM CDT
--- NOTE | ~2024-12-07 | XR_ITS ---
EXAMINATION: XR foot RT min 3V, 12/07/2024 15:15 CDT HISTORY: RIGHT FOOT INJURY COMPARISON: No comparisons available. Findings: Postsurgical changes of the calcaneus, no acute fracture is identified. No significant degenerative changes. Soft tissues unremarkable. Impression: No acute fracture or malalignment. Reviewed, dictated and finalized at location A. Impression: No acute fracture or malalignment.
--- OUTSIDE RECORDS SUMMARY | 2024-12-07 15:21 | XMS_ITS | Patient Health Record ---
Author Organization [facility] Address [address] [place] [address] [place] [address] Care Team Providers Care Receiving And Processing Supervisor Name Role Phone Hesham Driver Primary Care Provider Unavailabl e Allergies Allergen (clinical drug ingredient) Drug/Non Drug Allergy documented on EMR Reaction Allergy Type Onset Date Status fentanyl fentaNYL Unknown Drug Allergy Active Reason For Referral No Information Medications Medication SIG (Take, Route, Frequency, Duration) Notes Start Date End Date Status Meloxicam 7.5 MG 1 tablet Orally ever y 12 hours as needed; Duration: 90 days Active HYDROcodone-Acetaminophen 7.5-325 MG 1 tablet as needed Orally every 12 hours Active clonazePAM 1 MG 1 tablet Orally 4 times a day Active Ambien 10 MG 1 tablet at bedtime as needed Orally Once a day Active hydroCHLOROthiazide 25 MG 1 tablet in th e morning Orally Once a day Active Losartan Potassium 100 MG 1 tablet Orall y Once a day Active Nyamyc 880828 UNIT/GM 1 application Externally Twice a day Active Omeprazole 20 MG 1 capsule 30 minutes before morning meal Orally Once a day Active Fluticasone Propionate 50 MCG/ACT 1 spray in each nostril Nasally Once a day Active Sertraline HCl 100 MG 1 tablet Orally On ce a day Active Simvastatin 20 MG 1 tablet in the evening Orally Once a day Active Metoprolol Succinate 50 MG 1 capsule Ora lly Once a day Active Problems Problem Type SNOMED Code ICD Code Onset Dates Problem Status W/U Status Risk Notes Problem Chronic pain syndrome (773572689) Chronic pain syndrome (G89.4) Active confirmed Problem Lumbosacral spondylosis without myelopathy (06837887) Lumbar facet joint syndrome (M47.816) Active confirmed Provocative testing significant for: Positive facet loading and positive lumbar facet paraspinal tenderness Plan Of Treatment Pending Test Test Name Order Date CT Scan : L-S Spine W/O Contrast 022 Insurance Providers Payer Name Payer Address Payer Phone Subscriber Number Group Number Insured Name Patient Relationship to Insured Coverage Start Date Coverage End Date MEDICARE OF [place] [address] [place] [phone] [id number] Reena Del Rosario Self - patient is the insured [facility] [address] [address] [place] [address] [id number] Reena Del Rosario Self - patient is the [facility] B [address] [address] [place] [address] [phone] [id number] Reena Del Rosario Self - patient is the insured Medical (General) History Medical History History ICD Code Diabetic Neuropathy HTN HDL DM2 SINGLETON / NAFLD Surgical History Surgery Date(Month/Year) Gallbladder removal Carpel Tunnel Edwin 3x Back Surgery Knee Surgery Edwin 47x Hysterectomy
--- OUTSIDE RECORDS SUMMARY | 2024-12-07 15:21 | XMS_ITS | Patient Health Record ---
Author Organization [facility] Address [address] [facility] [place] [id number] Care Team Providers Care Senior Portfolio Analyst Name Role Phone Rudolph Radha Primary Care Provider [phone] Migration, Provider Unavailable Unavailable Reason For Referral No Information Medications Medication [...] nce daily; Duration: 30 days 09/23/2023 Unknown Problems Problem Type SNOMED Code ICD Code Onset Dates Problem Status W/U Status Risk Notes Problem Iron deficiency anemia (02947335) Iron deficiency anemia, unspecified (D50.9) Active confirmed Problem Neutropenia (452606291) Neutropenia, unspecified (D70.9) Active confirmed Problem Hyperglycemia due to type 2 diabetes mellitus (350938368049789) Type 2 diabetes mellitus with hyperglycemia (E11.65) Active confirmed Problem Type II diabetes mellitus without complication (761714691) Type 2 diabetes mellitus without complications (E11.9) Active confirmed Problem Hypoglycemia (586302018) Hypoglycemia, unspecified (E16.2) Active confirmed Problem Anxiety disorder (559658868) Anxiety disorder, unspecified (F41.9) Active confirmed Problem Obstructive sleep apnea syndrome (disorder) (32906654) Obstructive sleep apnea (adult) (pediatric) (G47.33) Active confirmed Problem Osteoarthritis of knee (555983225) Bilateral primary osteoarthritis of knee (M17.0) Active confirmed Problem Menopause (995381560) Menopausal and female climacteric states (N95.1) Active confirmed Problem Hyperlipidemia (43973159) Hyperlipidemia, unspecified (E78.5) Active confirmed Encounters Encounter Location Date Provider Diagnosis [facility] [address] [place], [place] [id number] 02/01/[address] Gald[address]z [address] [place] [address] 01/17/2024 Radha Galdamez Plan Of Treatment Pending Test Test Name Order Date -HF BONE DENSITY SCREEN 07/16/2023 3D Mammogram screening, US if inidicated 07/16/2023 Medical (General) History Medical History History ICD Code Type 2 diabetes mellitus with hyperglyce enoc E11.65 Menopausal and female climacteric states N95.1 Obstructive sleep apnea (adult) (pediatr ic) G47.33 Anxiety disorder, unspecified F41.9
--- OUTSIDE RECORDS SUMMARY | 2024-12-07 15:21 | XMS_ITS | Patient Health Record ---
Author Organization [facility] Address [address] [facility] [address] [place] [address] Care Team Providers Care Personal Financial Representative Name Role Phone Sathish Weldon Unavailable [phone] Reason For Referral No Information Medications Medication SIG (Take, Route, Frequency, Duration) Notes Start Date End Date Status Zolpidem Tartrate 10 MG Tablet Oral Active SEROquel XR 50 MG Tablet Extended Release 24 Hour Oral Active Lisinopril 10 MG Tablet Oral Active fentaNYL 25 MCG/HR Patch 72 Hour Transdermal Active HYDROCODONE 10 MG-ACETAMINOPHEN 325 MG/15 ML (15 ML) ORAL SOLUTION *Reorder from [employer] for eRx and Interaction Alerts* Active SEROquel XR 150 MG Tablet Extended Release 24 Hour Oral Active Cyclobenzaprine HCl 10 MG Tablet Oral Active Omeprazole 20 MG Capsule Delayed Release Oral Active clonazePAM 1 MG Tablet Oral Active Lyrica 100 MG Capsule Oral Active metFORMIN HCl 500 MG Tablet Oral Active Sertraline HCl 100 MG Tablet Oral Active Plan Of Treatment No Information
--- OUTSIDE RECORDS SUMMARY | 2024-12-07 15:22 | XMS_ITS | Clinical Summary ---
Author Organization [facility] Address [address] [place] [address] Care Team Providers Care Field Artillery Radar Operator Name Role Phone Gregorio Ricketts APRN-ROOFING APPLICATOR Primary Care Provide r Source Comments [facility],non-owned Affiliates and Associated Physician Practices is amultiple site organization consisting of ambulatory clinics and hospital sitesin [place], [place], [place] and [place]. This disclosure is being madepursuant to the Care Everywhere program and may not contain all information available regarding this patient. Last updated [employer] [facility] Allergies Active Allergy Reactions Criticality Noted Date Comments Fentanyl Rash,Other Medium 12/27/2016 Other reaction(s): Unknown Methadone Nausea and/or Vomiting 11/25/2008 Morphine Other Low 02/28/2015 Pt does not like the feeling- she sleeps Simvastatin Other 10/02/2010 Medications * Be aware that medications may not be up to date on this document. Alwaysverify current medications with the patient. insulin detemir (LEVEMIR) vial Inject 30 (thirty) Units subcutaneously BID 6 Active albuterol HFA (Proventil; Ventolin; Proair) 108 (90 Base) MCG/ACT inhaler Inhale 2 (two) puffs by mouth as needed for Shortness of Breath or Wheezing Active ALPRAZolam (Xanax) 1 MG tablet Take 1 (one) tablet by mouth 2 times daily as needed Active cyclobenzaprin e (Flexeril) 10 MG tablet Take 1 (one) tablet by mouth 2 times daily 4 Active escitalopram (Lexapro) 10 MG tablet Take 1 (one) tablet by mouth once daily Active fluticasone propionate (Flonase) 50 MCG/ACT nasal spray Red Bud 2 (two) sprays into each nostril as needed (allergy) Active HYDROcodone-ac etaminophen (Powell) 10-325 MG tablet Take 1 (one) tablet by mouth as needed for Pain Active insulin aspart (NovoLOG FLEXPEN) pen Inject subcutaneously as directed SSI Active losartan (Cozaar) 100 MG tablet Take 1 (one) tablet by mouth once daily Active omeprazole (PriLOSEC) 20 MG capsule Take 1 (one) capsule by mouth 2 times daily, before breakfast and supper 4 Active simvastatin (Zocor) 20 MG tablet Take 1 (one) tablet by mouth at bedtime Active zolpidem (Ambien) 10 MG tablet Take 1 (one) tablet by mouth nightly as needed for Insomnia 4 Active Active Problems Problem Noted Date Diagnosed Date Abnormal results of liver function studies 07/10 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 Achilles tendinitis of right lower extremity Anxiety and depression 12/27/2016 Cirrhosis of liver 02/28/2015 Overview (07/10/2024): 07/10/24 fibroscan Cap 315 LSM kPa 41.0 Thrombocytopenia 08/31/2013 Family History Medical History Relation Name Comments CAD (Coronary Artery Disease) Father CVA Father Cancer Father Status: d Cancer Mother Status: d Cancer Sister 1 Status: Alive None Known Sister 2 Status: Alive None Known Sister 3 Status: d Relation Name Status Comments Father Mother Sister 1 Sister 2 Sister 3 Social History Tobacco Use Types Packs/Day Years Used Date Smoking Tobacco: Never Smokeless Tobacco: Never Alcohol Use Standard Drinks/Week Comments No 0 (1 standard drink = 0.6 oz pur e alcohol) Comments Unknown Sex and Gender Information Value Date Recorded Sex Assigned at Not on file Legal Sex Female 5:42 PM DRUPAL WEB DEVELOPER Gender Identity Not on file Sexual Orientation Not on file Last Filed Vital Signs Vital Sign Reading Time Taken Comments Blood Pressure 135/81 07/10/2024 2:20 PM CDT Pulse 95 07/10/2024 2:20 PM CDT Temperature 36.6 C (97.9 F) 07/10/2024 2:08 PM CDT Respiratory Rate 16 12/06/2015 2:45 PM CDT Oxygen Saturation 98% 07/10/2024 2:08 PM CDT Inhaled Oxygen Concentration - - Weight 126.6 kg (279 lb) 07/10/2024 2:08 PM CDT Height 172.7 cm (5' 8) 07/10/2024 2:08 PM CDT Body Mass Index 42.42 07/10/2024 2:08 PM CDT Plan of Treatment Upcoming Encounters Date Type Department Care Team (Late st Contact Info) Description 01/19/2025 11:00 AM DRUPAL WEB DEVELOPER Appointment [facility] [address] [place] [phone] Laura Acuña, INDEPENDENT AGENT MUSIC EDUCATION-ROOFING APPLICATOR [address] [place] [address] [address] [place] [phone] 01/19/2025 12:00 PM DRUPAL WEB DEVELOPER Office Visit [facility] [address] [place] [address], [place] [phone] Laura Acuña, INDEPENDENT AGENT MUSIC EDUCATION-ROOFING APPLICATOR [address] [place] [address] [address] [place] [address] Health Maintenance Due Date Last Done Comments COLOGUARD (AGES 45-75) - COLON CA SCREENING 1959 COLON MONITORING 1959 COLONOSCOPY - COLON CA SCREENING 1959 CT COLONOGRAPHY - COLON CA SCREENING 1959 Colorectal Cancer Screening 1959 FIT - COLON CA SCREENING 1959 FLEX SIG - COLON CA SCREENING 1959 MEDICARE AWV 12 MONTHS 1959 HIV SCREENING 06/24/1974 DTAP/TDAP/TD VACCINES (1 - Tdap) 06/24/1978 PNEUMOCOCCAL VACCINE 50+ (1 of 2 - PCV) 06/24/1978 ZOSTER VACCINE (1 of 2) 06/24/2009 HEPATITIS B VACCINE (1 of 3 - Risk 3-dose series) 2019 Respiratory Syncytial Virus (RSV) Vaccine Pt: or over 60 yrs (1 - Risk 60-74 years 1-dose series) 2019 DEPRESSION SCREENING 03/18/2024 COVID-19 VACCINE ( season) 2024 INFLUENZA VACCINE (#1) 2024 3, 12/17/2011, 12/14/2010, Additional history exists MAMMOGRAM 06/01/2026 06/01/2024, 06/01/2024 SCREENING FOR DIABETES 07/11/2027 , 12/06/2015, 03/03/2015, Additional history exists HEPATITIS C SCREENING Completed 08/31/2013 BONE DENSITY TESTING Completed 06/01/2024 HIB VACCINE Aged Out No longer eligi ble based on patient's age to complete this topic HPV VACCINE Aged Out No longer eligi ble based on patient's age to complete this topic MENINGOCOCCAL (Group B) VACCINE SHARED DECISION-MAKING Aged Out No longer eligible based on patient's age to complete this topic MENINGOCOCCAL GROUPS A/C/Y/W VACCINE Aged Out No longer eligible based on patient's age to complete this topic Goals Goal Patient Goal Type Associated Problems Recent Progress Patient-Stated? Author Medication Management General Rosa Alanis, RN Note: Expected end date: Ongoing Interventions: Take all medications as prescribed Let your doctor know right away about any changes in your medications Make sure to request a refill of your medication at least one week prior to your last dose Procedures Procedure Name Priority Date/Time Associated Diagnosis Comments COMPREHENSIVE METABOLIC PANEL Routine 07/10/2024 3:40 PM CDT Hepatic cirrhosis, unspecified hepatic cirrhosis type, unspecified whether ascites present (HCC) HEPATITIS C ANTIBODY Timed 08/31/2013 12:40 PM CDT from Last 3 Months or Most Recently Relevant to Health Maintenance Results * (ABNORMAL) COMPREHENSIVE METABOLIC PANEL (07/10/2024 3:40 PM CDT) BUN 15 7 - 26 mg/dL 07/10/2024 4:49 PM CDT [facility] Creatinine 1.09(H) 0.56 - 0.96 mg/dL 07/10/2024 4:49 PM CDT [facility] Sodium 144 136 - 145 mmol/L 07/10/2024 4:49 PM [facility] Potassium 4.1 3.5 - 4.5 mmol/L 07/10/2024 4:49 PM [facility] Chloride 108(H) 98 - 107 mmol/L 07/10/2024 4:49 PM [facility] CO2 24 22 - 29 mmol/L 07/10/2024 4:49 PM [facility] Glucose 130(H) 70 - 99 mg/dL 07/10/2024 4:49 PM [facility] Calcium 9.2 8.4 - 10.2 mg/dL 07/10/2024 4:49 PM [facility] Protein Total 6.5 6.0 - 8.3 g/dL 07/10/2024 4:49 PM [facility] Albumin 3.5 3.4 - 5.0 g/dL 07/10/2024 4:49 PM [facility] Bilirubin Total 2.1(H) 0.2 - 1.2 mg/dL 07/10/2024 4:49 PM [facility] Alkaline Phosphatase 108 40 - 150 U/L 07/10/2024 4:49 PM [facility] ALT 25 5 - 55 U/L 07/10/2024 4:49 PM [facility] AST 29 5 - 34 U/L 07/10/2024 4:49 PM [facility] Anion Gap 12 6 - 16 07/10/2024 4:49 PM [facility] BUN/Creatinine Ratio 14 7 - 23 07/10/2024 4:49 PM [facility] Osmolality Calculated 301(H) 275 - 295 mOsm/kg 07/10/2024 4:49 PM [facility] Albumin/Globulin Ratio 1.2 1.1 - 2.3 07/10/2024 4:49 PM [facility] eGFR by CKD-EPI 56(L) >=90 mL/min/1.7 3 m2 07/10/2024 4:49 PM [facility] Blood BLOOD SPECIMEN / Unknown Lab Venipuncture / Unknown 07/10/2024 3:40 PM CDT 07/10/2024 4:22 PM CDT us Laura Acuña INDEPENDENT AGENT MUSIC EDUCATION-ROOFING APPLICATOR LAB - CHEMISTRY ORDE REN Final Result [facility] [address] [place] [address], [facility] [phone] * HEPATITIS C ANTIBODY (08/31/2013 12:40 PM CDT) Hepatitis C Antibody Non-react rachel Non-reac tive [facility] Comment: Hepatitis C Antibody screen indicates no serologic evidence of past or current infection with Hepatitis C Virus. Patients with unexplained liver disease who are immunocompromised or suspected of having acute Hepatitis C infection may benefit from Nucleic Acid Test (MACIE) for Hepatitis C Viral RNA to confirm Hepatitis C status. Blood specimen (specimen) BLOOD SPECIMEN / Unknown 08/31/2013 12:40 PM CDT 08/31/2013 1:43 PM CDT us Kayden Carroll MD LAB - CHEMISTRY ORDERABLES Gabby l Result [facility] [address] [place] [address], [facility] [phone] from Last 3 Months or Most Recently Relevant to Health Maintenance Insurance MEDICARE Care Teams Field Artillery Radar Operator Relationship Specialty Start Date End Date Gregorio Ricketts, INDEPENDENT AGENT MUSIC EDUCATION-ROOFING APPLICATOR [address] [place] [phone] PCP - General Internal Medicine 03/06/24
== END 2024-12-07 15:09 | disposition home or self-care (01) ==
PROVIDERS: PCP Registered Nurse; Visit Provider Registered Nurse
DX: S99.921A Unspecified injury of right foot, initial encounter (principal)
CPT/HCPCS: 73630